=== PATIENT | male | born 1970 | race Caucasian/White ===

== ENCOUNTER 2017-08-06 07:24 | Day surgery (SDC) | payer MEDICAID ==
[~2017-08-06] VITALS: Ht 177.8 cm; Wt 82.2 kg
[~2017-08-06 07:24] MED LIST: ALPR-624 PO; FOLI1TAB16 PO; FURO-150 PO; LIDOcaine 1% 30ml preserv. free vial SQ STA; MULT-1179 PO; POTA8CAP9 PO; SPIR50TA3 PO; THI100T PO; ZOLP5TAB8 PO; [UNRECOGNIZED DRUG - CODE] PO
[2017-08-06] MEDS ORDERED: normal saline 1000ml 1,000 ML IV PRN (07:50)
[2017-08-06] MEDS ORDERED: albumin (human) 25% 100 ML IV solution IV PRN (07:50)
[2017-08-06] MEDS ORDERED: CITA20TA11 PO (08:10)
[2017-08-06] MEDS ORDERED: PANT-47 PO (08:10)
[2017-08-06] MEDS ORDERED: SPIR25TA3 PO (08:10)
[2017-08-06] MEDS ORDERED: FERR324T4 PO (08:10)
[2017-08-06] MEDS ORDERED: LACT10SO PO (08:10)
== END 2017-08-06 08:25 | disposition home or self-care (01) ==
LOC: SSTAY O 07:24
PROVIDERS: ATTEND Radiology Diagnostic Radiology
DX: K70.31 Alcoholic cirrhosis of liver with ascites (principal); F32.9 Major depressive disorder, single episode, unspecified; F41.9 Anxiety disorder, unspecified; F10.10 Alcohol abuse, uncomplicated; Z88.0 Allergy status to penicillin; Z91.013 Allergy to seafood; Z88.3 Allergy status to other anti-infective agents; K72.90 Hepatic failure, unspecified without coma; Z79.899 Other long term (current) drug therapy; Z98.890 Other specified postprocedural states
CPT/HCPCS: 76705; A6257; J7030; J3490

== ENCOUNTER 2017-11-08 12:01 | Day surgery (SDC) | payer MEDICAID ==
[~2017-11-08] VITALS: Ht 177.8 cm; Wt 76.4 kg
[~2017-11-08 12:01] MED LIST changes: -ALPR-624 PO; +CITA-278 PO; +FERR324T4 PO; -FOLI1TAB16 PO; +LACT10SO PO; -LIDOcaine 1% 30ml preserv. free vial SQ STA; -MULT-1179 PO; +PANT-47 PO; -POTA8CAP9 PO; +SPIR25TA5 PO; -SPIR50TA3 PO; -THI100T PO; -ZOLP5TAB8 PO; -[UNRECOGNIZED DRUG - CODE] PO
[2017-11-08] MEDS ORDERED: LACT10SO67 PO (12:22)
[2017-11-08] MEDS ORDERED: PANT-47 PO (12:25)
[2017-11-08] MEDS ORDERED: [UNRECOGNIZED DRUG - OTHER] (12:25)
[2017-11-08] MEDS ORDERED: SPIRONOLACTONE PO (12:25)
[2017-11-08] MEDS ORDERED: XIFAXAN PO (12:26)
[2017-11-08] MEDS ORDERED: fentaNYL/PF 50MCG/1 ML 2ML syringe ONE (12:31)
[2017-11-08] MEDS ORDERED: MIDAZolam 5mg/5ml vial ONE (12:31)
[2017-11-08] MEDS ORDERED: LIDOcaine Viscous 15ml cup ONE (12:31)
[2017-11-08 12:36] VITALS: BP 151/90
[2017-11-08 13:38] VITALS: BP 142/95
[2017-11-08 13:48] VITALS: BP 130/76
[2017-11-08 13:58] VITALS: BP 133/78
[2017-11-08 14:08] VITALS: BP 123/71
== END 2017-11-08 14:10 | disposition home or self-care (01) ==
LOC: GI LAB 12:01
PROVIDERS: ATTEND Internal Medicine Gastroenterology
DX: I85.00 Esophageal varices without bleeding (principal); K76.6 Portal hypertension; K31.89 Other diseases of stomach and duodenum; I48.91 Unspecified atrial fibrillation; F10.21 Alcohol dependence, in remission; F32.9 Major depressive disorder, single episode, unspecified; F41.8 Other specified anxiety disorders; Z88.0 Allergy status to penicillin; Z88.3 Allergy status to other anti-infective agents; Z85.05 Personal history of malignant neoplasm of liver; Z91.013 Allergy to seafood; Z79.899 Other long term (current) drug therapy; Z98.890 Other specified postprocedural states; Z96.698 Presence of other orthopedic joint implants
CPT/HCPCS: 43244; 99152; J2250; J3010; J7030; A4620; G0500

== ENCOUNTER 2018-01-10 12:31 | Day surgery (SDC) | payer MEDICAID ==
[~2018-01-10] VITALS: Ht 177.8 cm; Wt 79.0 kg
[~2018-01-10 12:31] MED LIST changes: -FERR324T4 PO; -FURO-150 PO; -LACT10SO PO; +LACT10SO67 PO; -SPIR25TA5 PO; +SPIRONOLACTONE PO; +XIFAXAN PO
[2018-01-10 12:39] VITALS: BP 126/71
[2018-01-10] MEDS ORDERED: MELA5TAB12 PO (12:54)
[2018-01-10] MEDS ORDERED: FERR-119 PO (12:54)
[2018-01-10] MEDS ORDERED: LIDOcaine Viscous 15ml cup ONE (13:15)
[2018-01-10] MEDS ORDERED: MIDAZolam 5mg/5ml vial ONE (13:15)
[2018-01-10] MEDS ORDERED: fentaNYL/PF 50MCG/1 ML 2ML syringe ONE (13:15)
[2018-01-10 14:02] VITALS: BP 122/78
[2018-01-10 14:12] VITALS: BP 102/72
[2018-01-10 14:22] VITALS: BP 108/71
[2018-01-10 14:32] VITALS: BP 106/68
== END 2018-01-10 14:45 | disposition home or self-care (01) ==
LOC: GI LAB 12:31
PROVIDERS: ATTEND Internal Medicine Gastroenterology
DX: I85.00 Esophageal varices without bleeding (principal); K76.6 Portal hypertension; K31.89 Other diseases of stomach and duodenum; I48.91 Unspecified atrial fibrillation; F10.21 Alcohol dependence, in remission; F32.9 Major depressive disorder, single episode, unspecified; Z85.05 Personal history of malignant neoplasm of liver; Z96.698 Presence of other orthopedic joint implants; Z88.0 Allergy status to penicillin; Z91.013 Allergy to seafood; Z88.3 Allergy status to other anti-infective agents; Z86.69 Personal history of other diseases of the nervous system and sense organs; Z79.899 Other long term (current) drug therapy; Z98.890 Other specified postprocedural states
CPT/HCPCS: 43244; 99152; J2250; J3010; J7030; A4620; G0500

== ENCOUNTER 2019-02-13 09:01 | Day surgery (SDC) | payer MEDICAID ==
[~2019-02-13] VITALS: Ht 177.8 cm; Wt 81.8 kg
[~2019-02-13 09:01] MED LIST changes: -CITA-278 PO; +CITA20TA28 PO; +FERR-119 PO; +MELA5TAB12 PO
[2019-02-13] MEDS ORDERED: fentaNYL/PF 50MCG/1 ML 2ML syringe ONE (09:07)
[2019-02-13] MEDS ORDERED: MIDAZolam 5mg/5ml vial ONE (09:08)
[2019-02-13] MEDS ORDERED: LIDOcaine Viscous 15ml cup ONE (09:08)
[2019-02-13 09:10] VITALS: BP 111/65
[2019-02-13] MEDS ORDERED: LORA-269 PO (09:15)
[2019-02-13] MEDS ORDERED: ZINC50TA60 PO (09:16)
[2019-02-13] MEDS ORDERED: MELA3TAB64 PO (09:20)
[2019-02-13] MEDS ORDERED: ROPI1TAB4 PO (09:22)
[2019-02-13 10:46] VITALS: BP 104/59
[2019-02-13 10:56] VITALS: BP 114/66
[2019-02-13 11:06] VITALS: BP 109/66
== END 2019-02-13 11:17 | disposition home or self-care (01) ==
LOC: GI LAB 09:01
PROVIDERS: ATTEND Internal Medicine Gastroenterology
DX: I85.00 Esophageal varices without bleeding (principal); K22.8 Other specified diseases of esophagus; K29.50 Unspecified chronic gastritis without bleeding; K76.6 Portal hypertension; K31.89 Other diseases of stomach and duodenum
CPT/HCPCS: 43239; 99152; J2250; J3010; J7040; 99153; A4620

== ENCOUNTER 2020-03-19 08:17 | Day surgery (SDC) | payer MEDICAID ==
[~2020-03-19] VITALS: Ht 177.8 cm; Wt 97.7 kg
[~2020-03-19 08:17] MED LIST changes: -FERR-119 PO; +LORA-269 PO; +MELA3TAB39 PO; -MELA5TAB12 PO; +ROPI1TAB6 PO; +ZINC50TA60 PO
[2020-03-19 08:30] VITALS: BP 115/67
[2020-03-19] MEDS ORDERED: fentaNYL/PF 50MCG/1 ML 2ML syringe ONE (08:47)
[2020-03-19] MEDS ORDERED: LIDOcaine Viscous 15ml cup ONE (08:48)
[2020-03-19] MEDS ORDERED: MIDAZolam 5mg/5ml vial ONE (08:48)
[2020-03-19 09:40] VITALS: BP 133/69
[2020-03-19 09:50] VITALS: BP 97/70
[2020-03-19 10:00] VITALS: BP 113/72
[2020-03-19 10:10] VITALS: BP 121/70
== END 2020-03-19 10:10 | disposition home or self-care (01) ==
LOC: GI LAB 08:17
PROVIDERS: ATTEND Internal Medicine Gastroenterology
DX: I85.00 Esophageal varices without bleeding (principal); K22.8 Other specified diseases of esophagus; K76.6 Portal hypertension; K31.89 Other diseases of stomach and duodenum; Z88.0 Allergy status to penicillin; Z88.8 Allergy status to other drugs, medicaments and biological substances; Z91.013 Allergy to seafood
CPT/HCPCS: 43235; 99152; J2250; J3010; J7040; A4620